=== PATIENT | male | born 1990 | race Caucasian/White ===

== ENCOUNTER 2017-03-25 09:23 | Emergency (ER) | payer OTHER ==
[~2017-03-25] VITALS: Ht 182.9 cm; Wt 104.3 kg
--- NOTE | ~2017-03-25 | EKG ---
[address] [address] ELECTROCARDIOGRAM REPORT Name: LAUREN RIBEIRO Room #: [facility]#: [id number] Admission: 03/25/17 Attend Phys: Discharge: 03/25/17 Date of : 89 Report #: [id number] THIS REPORT FOR: //name// [facility] ED Test Date: 2017-03-25 Test Time: 09:59:46 Pat Name: LAUREN RIBEIRO Department: Room: Gender: M Manager Administrative: PENELOPE : 1990 Requested By: Tab Chance Order Number: [id number] MD: Tevin Lopez Measurements Intervals [place] Rate: 72 P: 36 CT: 177 QRS: -16 QRSD: 101 T: 44 QT: 360 QTc: 394 Interpretive Statements Sinus rhythm Borderline left axis deviation No previous ECG available for comparison Electronically Signed On 03-25-2017 16:21:20 ROUTEMAN by Tevin Lopez [email or web address] <ELECTRONICALLY SIGNED> By: Tevin Lopez MD 03/25/17 1621 [id number] Tevin Lopez MD /[email or web address]
[2017-03-25] MEDS ORDERED: NAPROSYN500 MG PO (10:39)
== END 2017-03-25 10:49 | disposition home or self-care (01) ==
LOC: ER 09:23
DX: M94.0 Chondrocostal junction syndrome [Tietze] (principal); F32.9 Major depressive disorder, single episode, unspecified